=== PATIENT | female | born 1985 | race American Indian/Alaskan Native ===

== ENCOUNTER 2019-09-29 22:59 | Day surgery (SDC) | payer MEDICAID ==
[2019-09-30 00:03] LABS: Basophils # (Auto) 0.1 K/mm3 (0.0-0.1); Basophils % (Auto) 0.9 % (0.0-1.8); Eosinophils # (Auto) 0.1 K/mm3 (0.0-0.4); Eosinophils % (Auto) 1.7 % (0.0-4.3); Hematocrit 31.6 % (30.3-42.9); Hemoglobin 10.9 gm/dl (10.1-14.3); Lymphocytes # (Auto) 2.7 K/mm3 (1.2-5.4); Mean Corpuscular HGB Conc 35 % (30-34); Mean Corpuscular Volume 99 fl (79-97); Monocytes # (Auto) 0.5 K/mm3 (0.0-0.8); Monocytes % (Auto) 6.2 % (0.0-7.3); Platelet Count 315 K/mm3 (140-440); Red Blood Count 3.19 M/mm3 (3.65-5.03); Red Cell Distribution Width 12.9 % (13.2-15.2)
[2019-09-30 01:59] LABS: Bacteria,Urine 1+ /HPF (Negative); Bilirubin,Urine NEG (Negative); Blood,Urine SM (Negative); Color,Urine Straw (Yellow); Protein,Urine <15 mg/dL mg/dL (Negative); Urobilinogen,Urine < 2.0 mg/dL (<2.0)
--- NOTE | 2019-09-30 02:56 | Ultrasound Report ---
Pelvic Ultrasound HISTORY: Vaginal spotting and abdominal pain. TECHNIQUE: Grayscale and color Doppler imaging performed. COMPARISON: No recent ultrasound is available for comparison FINDINGS: Uterus measures 6.8 x 4.2 x 4.9 cm. A couple primarily hypoechoic masses are present, one i n the uterine body region consistent with a fibroid measuring 1.5 cm. There is an ectopic in the left adnexal region. A small pole is identified with crown -rump length of 0.3 cm corresponding with an EGA of 6 weeks and 0 days. There is cardiac activi ty with heart rate of 116 bpm. No free fluid identified. Right ovary is normal in size and appearance . IMPRESSION: 1. Left-sided adnexal ectopic . 2. Pelvic fibroids. CRITICAL RESULT: Time of Discovery (HOT TAMALE WORKER/CDT): 1:49 AM Time of Communication (HOT TAMALE WORKER/CDT): 1:51 AM Licensed Practitioner Receiving Report: Alina in the emergency department Read Back Performed: Yes. Signer Name: Thanh Menchaca MD Signed: 09/30/2019 2:52 AM Workstation Name: [id number]
--- NOTE | 2019-09-30 02:56 | Ultrasound Report ---
Pelvic Ultrasound HISTORY: Vaginal spotting and abdominal pain. TECHNIQUE: Grayscale and color Doppler imaging performed. COMPARISON: No recent ultrasound is available for comparison FINDINGS: Uterus measures 6.8 x 4.2 x 4.9 cm. A couple primarily hypoechoic masses are present, one i n the uterine body region consistent with a fibroid measuring 1.5 cm. There is an ectopic in the left adnexal region. A small pole is identified with crown -rump length of 0.3 cm corresponding with an EGA of 6 weeks and 0 days. There is cardiac activi ty with heart rate of 116 bpm. No free fluid identified. Right ovary is normal in size and appearance . IMPRESSION: 1. Left-sided adnexal ectopic . 2. Pelvic fibroids. CRITICAL RESULT: Time of Discovery (M48/M60 TANK DRIVER/CDT): 1:49 AM Time of Communication (M48/M60 TANK DRIVER/CDT): 1:51 AM Licensed Practitioner Receiving Report: Alina in the emergency department Read Back Performed: Yes. Signer Name: Thanh Menchaca MD Signed: 09/30/2019 2:52 AM Workstation Name: [email or web address]
--- NOTE | 2019-09-30 03:06 | Emergency Department Report ---
ED General Adult HPI - General Chief complaint: GI Bleed Stated complaint: BLOOD CLOTS IN STOOL AND NEWLY Time Seen by Provider: 09/30/19 01:54 Source: patient Mode of arrival: Ambulatory Limitations: No Limitations - History of Present Illness Initial comments: Patient is a 34-year-old female presents emergency room with complaints of rectal bleeding that began a week ago. She states that she has been passing some small clots and notices blood when she wipes. She states that she has been constipated but is still able to have bowel movements. She states that she does have discomfort with having a bowel movement. She states that she has had hemorrhoids in the past. Patient states that she also just found out she was last week. She states that she took a urine test. she does not have an HEAD START TEACHER. She states her last menstrual cycle was the end of July. She states that she has had intermittent vaginal spotting and intermittent abdominal cramping for about a week. She denies any nausea, vomiting, diarrhea, fever. She states this is her first . She states that she was told by a doctor that she could not get due to blockages of her fallopian tubes. She denies any other past medical history. She states she has an allergy to sulfa. - Related Data Previous Rx's Medication Instructions Recorded Last Taken Type Diclofenac Dr Kathrine Almanza] 75 mg PO Q12H #30 tablet 07/03/15 Unknown Rx traMADoL [Ultram 50 MG tab] 50 mg PO Q6HR PRN #20 tablet 01/30/16 Unknown Rx Allergies Allergy/AdvReac Type Severity Reaction Status Date / Time Sulfa (Sulfonamide Allergy Hives Verified 04/12/14 08:23 Antibiotics) ED Review of Systems ROS: Stated complaint: BLOOD CLOTS IN STOOL AND NEWLY Other details as noted in HPI Comment: All other systems reviewed and negative ED Past Medical Hx - Past Medical History Previous Medical History?: Yes Hx Psychiatric Treatment: (anxiety) Additional medical history: Anemia, HEMORROIDS - Surgical History Past Surgical History?: Yes Additional Surgical History: LIPOMA LEFT SHOULDER - Social History Smoking Status: Never Smoker Substance Use Type: None - Medications Home Medications: Home Medications Medication Instructions Recorded Confirmed Last Taken Type Diclofenac Dr Kathrine Almanza] 75 mg PO Q12H #30 tablet 07/03/15 Unknown Rx traMADoL [Ultram 50 MG tab] 50 mg PO Q6HR PRN #20 tablet 01/30/16 Unknown Rx ED Physical Exam - General Limitations: No Limitations General appearance: alert, in no apparent distress - Head Head exam: Present: atraumatic, normocephalic - Eye Eye exam: Present: normal appearance - ENT ENT exam: Present: mucous membranes moist - Respiratory Respiratory exam: Present: normal lung sounds bilaterally. Absent: respiratory distress, wheezes, rales, rhonchi, stridor, chest wall tenderness, accessory muscle use, decreased breath sounds, prolonged expiratory - Cardiovascular Cardiovascular Exam: Present: regular rate, normal rhythm, normal heart sounds. Absent: systolic murmur, diastolic murmur, rubs, gallop - GI/Abdominal GI/Abdominal exam: Present: soft, normal bowel sounds. Absent: distended, tenderness, guarding, rebound, rigid - Rectal Rectal exam: Present: normal rectal tone, heme (-) stool, hemorrhoids (three small non thrombosed external hemorrhoids), other (small amount of light brown stool, no active bleeding, calciner operator: trinity, KALI). Absent: mass - Neurological Exam Neurological exam: Present: alert, oriented X3 - Psychiatric Psychiatric exam: Present: normal affect, normal mood - Skin Skin exam: Present: warm, dry, intact ED Course Vital Signs 09/29/19 09/30/19 09/30/19 23:03 03:39 04:17 Temperature 98.3 F 98.1 F Pulse Rate 104 H 70 Respiratory 18 18 18 Rate Blood Pressure 114/61 Blood Pressure 113/74 [Left] O2 Sat by Pulse 100 98 Oximetry - Consultations Consultation #1: 09/30/19 03:[address] Guadarrama, HEAD START TEACHER regarding pt history and US finding of ectopic , advised to keep NPO, get type and screen, and that pt will be going to the OR ED Medical Decision Making - Lab Data Result diagrams: 09/29/19 23:37 - Radiology Data Radiology results: report reviewed Pelvic Ultrasound HISTORY: Vaginal spotting and abdominal pain. TECHNIQUE: Grayscale and color Doppler imaging performed. COMPARISON: No recent ultrasound is available for comparison FINDINGS: Uterus measures 6.8 x 4.2 x 4.9 cm. A couple primarily hypoechoic masses are present, one in the uterine body region consistent with a fibroid measuring 1.5 cm. There is an ectopic in the left adnexal region. A small pole is identified with crown-rump length of 0.3 cm corresponding with an EGA of 6 weeks and 0 days. There is cardiac activity with heart rate of 116 bpm. No free fluid identified. Right ovary is normal in size and appearance. IMPRESSION: 1. Left-sided adnexal ectopic . 2. Pelvic fibroids. CRITICAL RESULT: Time of Discovery (RADIOTELEPHONE OPERATOR/CDT): 1:49 AM Time of Communication (RADIOTELEPHONE OPERATOR/CDT): 1:51 AM Licensed Practitioner Receiving Report: Alina in the emergency department Read Back Performed: Yes. Signer Name: Thanh Menchaca MD Signed: 09/30/2019 2:52 AM Workstation Name: [id number] Transcribed By: JEFFREY Dictated By: Thanh Menchaca MD Electronically Authenticated By: Thanh Menchaca MD Signed Date/Time: 09/30/19 025 DD/ 0247 TD/TT: - Medical Decision Making Patient is a 34-year-old female presents emergency room with complaints of rectal bleeding that began a week ago. She states that she has been passing some small clots and notices blood when she wipes. She states that she has been constipated but is still able to have bowel movements. She states that she does have discomfort with having a bowel movement. She states that she has had hemorrhoids in the past. Patient states that she also just found out she was last week. She states that she took a urine test. she does not have an HEAD START TEACHER. She states her last menstrual cycle was the end of July. She states that she has had intermittent vaginal spotting and intermittent abdominal cramping for about a week. She denies any nausea, vomiting, diarrhea, fever. She states this is her first . She states that she was told by a doctor that she could not get due to blockages of her fallopian tubes. She denies any other past medical history. She states she has an allergy to sulfa. initial vitals with mild tachycardia which improved upon repeat. on exam: three small non thrombosed external hemorrhoids, heme negative stool, small amount light brown stool, no active bleeding, calciner operator: Trinity, EMT, no abd TTP, no guarding, no rebound, no rigidity. rectal bleeding secondary to hemorrhoids, hemocult is negative, H/H are normal. labs are stable. H/H is normal. hcg quant is 2189. US OB: 1. Left-sided adnexal ectopic . 2. Pelvic fibroids. spoke with Dr. Guadarrama, HEAD START TEACHER regarding pt history and US finding of ectopic , advised to keep NPO, get type and screen, and that pt will be going to the OR. - Differential Diagnosis IUP, ectopic, subchorionic hemorrhage, cyst, hemorrhoids, anal fissure Critical care attestation.: If time is entered above; I have spent that time in minutes in the direct care of this critically ill patient, excluding procedure time. ED Disposition Clinical Impression: External hemorrhoid Ectopic Qualifiers: Location of ectopic : ovarian Intrauterine status: without intrauterine Laterality: left Qualified Code(s): O00.202 - Left ovarian without intrauterine Disposition: OP ADMIT IP TO THIS HOSP Is pt being admited?: Yes Does the pt Need Aspirin: No Condition: Stable Referrals: MARIO DE GUZMAN MD [Primary Care Provider] - 3-5 Days Forms: Accompanied Note
[2019-09-30] MEDS ORDERED: LACTATED RINGERS 1,000 ML IV ONE (04:46)
[2019-09-30] MEDS ORDERED: LIDOCAINE MPF (2%) 20 MG/1 ML VIAL 5 ML ONE (04:54)
[2019-09-30] MEDS ORDERED: SUCCINYLCHOLINE CHLORIDE 200 MG/10 ML INJ MDV ONE (04:54)
[2019-09-30] MEDS ORDERED: fentaNYL 100 MCG/2 ML INJ ONE (04:55)
[2019-09-30] MEDS ORDERED: propofoL 200 MG/20 ML VIAL IV ONE (04:55)
[2019-09-30] MEDS ORDERED: BUPIVACAINE/PF (0.5%) 5 MG/1 ML 30 ML VIAL INFILTRATI ONE ×2 (05:05→06:13)
--- NOTE | 2019-09-30 05:14 | History and Physical Report ---
History of Present Illness Chief complaint: genital bleeding History of present illness: 34yo (LMP end of July) presents to ER complaining of "rectal bleeding" for 1 week. She states she is passing clots when she uses the restroom and she believes it was coming from her rectum. She denies any vaginal bleeding or abdominal pain. When asked how she knew blood was from her rectum she states it was on the toilet paper. Her beta HCG was 2,189K in the ER and pelvic US revealed a 6 week fetus with ectopic in the left adnexa. Stool Hemeocult analysis was negative. She was told several years ago that her fallopian tubes were blocked and only did a test after prompted by a coworker after complaining about her bleeding. She is tearful and states she is going to "lose her baby" and she is alone. 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 Her mother is in [place], [place] where she is from.) - Obstetrical History : 1 Number of Living Children: 0 Medications and Allergies Allergies Allergy/AdvReac Type Severity Reaction Status Date / Time Sulfa (Sulfonamide Allergy Hives Verified 04/12/14 08:23 Antibiotics) Home Medications Medication Instructions Recorded Confirmed Last Taken Type Diclofenac Dr [Voltaren Dr] 75 mg PO Q12H #30 tablet 07/03/15 Unknown Rx traMADoL [Ultram 50 MG tab] 50 mg PO Q6HR PRN #20 tablet 01/30/16 Unknown Rx Ibuprofen [Motrin 800 MG tab] 800 mg PO Q8HR PRN 30 Days #30 09/30/19 Unknown Rx tablet oxyCODONE /ACETAMINOPHEN [Percocet 1 tab PO Q4HR PRN 14 Days #30 tab 09/30/19 Unknown Rx 5/325] Active Meds: Active Medications Lactated Ringer's (Lactated Ringers) 1,000 mls @ 999 mls/hr IV BOLUS ONE Stop: 09/30/19 05:46 Last Admin: 09/30/19 04:47 Dose: 999 mls/hr Documented by: Review of Systems Genitourinary: vaginal bleeding - Vital Signs Vital signs: Vital Signs Temp Pulse Resp BP Pulse Ox 98.3 F 104 H 18 114/61 100 09/29/19 23:03 09/29/19 23:03 09/29/19 23:03 09/29/19 23:03 09/29/19 23:03 Temp Pulse Resp BP Pulse Ox 98.1 F 70 18 113/74 98 09/30/19 03:39 09/30/19 03:39 09/30/19 04:17 09/30/19 03:39 09/30/19 03:39 - Physical Exam Abdomen: Positive: soft, other (no guarding or rebound) Vagina: Positive: other (deferred to OR) Uterus: Positive: other (deferred to OR) Extremities: Positive: normal - Obstetrical FHR comments: heart rate 116 on US, CRL 6 weeks Results Result Diagrams: 09/29/19 23:37 Abnormal lab results 09/29/19 09/29/19 09/29/19 Range/Units 23:32 23:37 23:37 RBC 3.19 L (3.65-5.03) M/mm3 MCV 99 H (79-97) fl MCH 34 H (28-32) pg MCHC 35 H (30-34) % RDW 12.9 L (13.2-15.2) % HCG, Quant 2189 H (0-4) mIU/mL Ur Specific Sayre 1.002 L (1.003-1.030) All other labs normal. Assessment and Plan - Patient Problems (1) Ectopic Current Visit: Yes Status: Acute Qualifiers: Location of ectopic : ovarian Intrauterine status: without intrauterine Laterality: left Qualified Code(s): O00.202 - Left ovarian without intrauterine Plan to address problem: 1. Due to relative contraindication to methotrexate recommend proceeding to diagnostic laparoscopy with removal of ectopic . Risk of tubal rupture, pelvic hemorrhage, possible oopherectomy and resulting decreased fertility, infection, injury to surrounding organs including bladder, bowel, ureters, conversion to laparotomy, neuropathy, [place] and stroke discussed Benefits and alternatives discussed and informed consent signed. 2. SCDs for DVT prophylaxis. 3. Ancef 2g IV 4. Proceed to OR.
[2019-09-30] MEDS ORDERED: MIDAZOLAM 2 MG/2 ML INJ ONE ×2 (05:38)
--- NOTE | 2019-09-30 05:51 | Anesthesia Consultation ---
Anesthesia Consult and Med Hx Date of service: 09/30/19 - Airway Anesthetic Teeth Evaluation: Good ROM Head & Neck: Adequate Mental/Hyoid Distance: Adequate Mallampati Class: Class II Intubation Access Assessment: Good - Pulmonary Exam CTA: Yes - Cardiac Exam Cardiac Exam: No Murmur - Pre-Operative Health Status ASA Pre-Surgery Classification: ASA1, Emergency Proposed Anesthetic Plan: General
--- NOTE | 2019-09-30 05:51 | Anesthesia Day of Surgery ---
Anesthesia Day of Surgery - Day of Surgery Patient Examined: Yes Patient H&P Reviewed: Yes Patient is NPO: Yes
[2019-09-30] MEDS ORDERED: ceFAZolin/Water 2 GM/20 ML 2 GM/20 ML SYRINGE IV NR (06:00)
[2019-09-30] MEDS ORDERED: SODIUM CHLORIDE 0.9% IRR 1,000 ML BOTTLE IR ONE (06:13)
[2019-09-30] MEDS ORDERED: METOCLOPRAMIDE 10 MG/2 ML INJ ONE (07:03)
[2019-09-30] MEDS ORDERED: KETOROLAC 30 MG/1 ML INJ ONE (07:03)
[2019-09-30] MEDS ORDERED: ONDANSETRON 4 MG/2 ML INJ ONE (07:03)
[2019-09-30] MEDS ORDERED: dexAMETHasone 20 MG/5 ML VIAL ONE (07:03)
[2019-09-30] MEDS ORDERED: LACTATED RINGERS 1,000 ML ONE (07:04)
[2019-09-30] MEDS ORDERED: HYDROmorphone 1 MG/1 ML INJ ONE (07:04)
[2019-09-30] MEDS ORDERED: NEOSTIGMINE 10MG/10 ML INJ MDV ONE (07:40)
[2019-09-30] MEDS ORDERED: GLYCOPYRROLATE 0.4 MG/2 ML INJ ONE ×2 (07:40)
[2019-09-30] MEDS: HYDROmorphone 1 MG/1 ML INJ IV PRN ×2 (08:23→08:35)
--- NOTE | 2019-09-30 08:55 | Operative Report ---
Operative Report Operative Report: Preop diagnosis 1. Left tubal ectopic with heart activity 2. Vaginal bleeding 3. Fibroid uterus 4. History of infertility Postop diagnosis 1. Left tubal ectopic with heart activity 2. Vaginal bleeding 3. Cervical stenosis 4. Pelvic adhesions 5. Pedunculated fibroid uterus 6. Right simple cyst 7. Bilateral hydrosalpinx 8. History of infertility Procedure 1. Diagnostic laparoscopy 2. Left partial salpingectomy 3. Excision of ectopic Surgeon Dr. Jazmine Guadarrama Findings 1. ~ 8week anteverted uterus 2. Left tubal ectopic adhered to left ovary and fimbria 3. Small ~2cm anterior pedunculated fibroid 4. Stenotic cervix 5. Filmy adhesions right fallopian tube to pelvic side wall 6. Simple appearing right paratubal cyst ~1cm 7. Bilateral hydrosalpinx Specimen: 1. Products of conception encased in left partial fallopian tube Anesthesia: General I/O EBL: <25ml UOP: 325ml clear Complications: none Disposition: Patient to PACU in stable condition INDICATION: 34yo presented to ER complaining of vaginal bleeding and positive test. The ultrasound revealed a left adnexal with cardiac activity. Due to the relative contraindication to methotrexate with ectopic with cardiac activity the recommendation was made to proceed to surgical treatment. The risks of diagnostic laparoscopy including but not limited to bleeding, infection, injury to vessels, bladder and/or bowel and nerve injury were discussed. Benefits and alternatives were discussed and informed consent signed. PROCEDURE: The patient was taken to OR 3 in stable condition. She was placed on the bed in the supine position and adequate anesthesia was achieved. She wore SCDs for DVT prophylaxis and received Ancef 2g. An exam under anesthesia was done. She was prepped and draped in the sterile fashion and a time out was done. She was re- positioned in the dorsal lithotomy position with Deshawn stirrups. A Holder catheter was placed to drain the bladder. Initially an EEA sizer was placed per vagina and used to manipulate the uterus until the ectopic was confirmed in the left adnexa via laparoscope. Attention was then turned to the abdomen where a 0.5cm infraumbilical incision was made. A 5mm Applied Fios trocar was used to insufflate the abdomen with CO2 gas. The opening pressure was noted to be <10mm Hg. An intra-abdominal survey noted bilateral hydrosalpinx, pelvic adhesions and left tubal ectopic . No signs of endometriosis were noted. A RLQ 5mm incision was placed in LLQ and 10mm trocar placed in RLQ under direct visualization. Returning to the perineum, a sterile speculum was placed per vagina and a single toothed tenaculum was placed on the anterior lip of the cervix. An acorn uterine manipulator was placed in the cervix. A Ligasure [place] bipolar device was used to free the products from the fallopian tube. The products were then placed in an Endocatch bag and removed from the abdomen under direct visualization. The products of conception was incised on the Ruano stand and gestational sac and parts were visualized. The patient was taken out of Trendelenburg and the abdomen freed of gas, the pelvis was noted to be hemostatic. The left tubal pedicle and ovary was noted to be hemostatic. The abdomen was freed of gas and all trocars were removed. The Volant uterine manipulator was removed. The Holder catheter was removed. 0.5% Marcaine was injected into the abdominal incisions. The skin of both incisions was closed with 4-0 Monocryl The procedure was ended. All counts were correct x 2. The patient was awakened from anesthesia in stable condition and transported to the PACU. I was present and scrubbed for the entire procedure. Of note the patient was noted to have a small amount of epistaxis from right nostril before leaving the OR. This was monitored in the PACU with no repeat episodes.
[2019-09-30] MEDS ORDERED: oxyCODONE /ACETAMINOPHEN 5-325MG TAB PO PRN (09:39)
--- NOTE | 2019-09-30 10:18 | Discharge Summary ---
Providers - Providers 09/30/19 03:18 Consult to Physician [CONS] Stat Comment: Consulting Provider: MAISHA MARIE Physician Instructions: Reason For Exam: ectopic 09/30/19 03:47 Consult to Physician [CONS] Stat Comment: Consulting Provider: SANCHEZ LUKE Physician Instructions: Reason For Exam: rectal bleeding [facility] Reason for admission: other (vaginal bleeding) Procedure: other (diagnostic laparoscopy, left partial salpingectomy, excision ectopic ) Discharge diagnosis: other (left ectopic , fibroid uterus, cervical stenosis) Hospital course: 34yo (LMP end of July) presents to ER complaining of "rectal bleeding" for 1 week. She states she is passing clots when she uses the restroom and she believes it was coming from her rectum. She denies any vaginal bleeding or abdominal pain. When asked how she knew blood was from her rectum she states it was on the toilet paper. Her beta HCG was 2,189K in the ER and pelvic US revealed a 6 week fetus with ectopic in the left adnexa. Stool Hemeocult analysis was negative. She was told several years ago that her fallopian tubes were blocked. Preop diagnosis 1. Left tubal ectopic with heart activity 2. Vaginal bleeding 3. Fibroid uterus 4. History of infertility Postop diagnosis 1. Left tubal ectopic with heart activity 2. Vaginal bleeding 3. Cervical stenosis 4. Pelvic adhesions 5. Pedunculated fibroid uterus 6. Right simple cyst 7. Bilateral hydrosalpinx 8. History of infertility Procedure 1. Diagnostic laparoscopy 2. Left partial salpingectomy 3. Excision of ectopic Findings 1. ~ 8week anteverted uterus 2. Left tubal ectopic adhered to left ovary and fimbria 3. Small ~2cm anterior pedunculated fibroid 4. Stenotic cervix 5. Filmy adhesions right fallopian tube to pelvic side wall 6. Simple appearing right paratubal cyst ~1cm 7. Bilateral hydrosalpinx Specimen: 1. Products of conception encased in left partial fallopian tube Condition at discharge: Stable Disposition: -09 OP ADMIT IP TO THIS HOSP - Discharge Diagnoses (1) Ectopic Status: Acute Qualifiers: Location of ectopic : ovarian Intrauterine status: without intrauterine Laterality: left Qualified Code(s): O00.202 - Left ovarian without intrauterine Comment: s/p left salpingectomy. betaHCG 2189-->2159 (decreasing post-op) Plan - Discharge Medications Prescriptions: Ibuprofen [Motrin 800 MG tab] 800 mg PO Q8HR PRN 30 Days #30 tablet PRN Reason: Pain, Moderate (4-6) oxyCODONE /ACETAMINOPHEN [Percocet 5/325] 1 tab PO Q4HR PRN 14 Days #30 tab PRN Reason: Pain , Severe (7-10) - Provider Discharge Summary Activity: no sex for 6 weeks, no strenuous exercise Diet: other (clear liquids x 2 days) Additional instructions: [] Smoking cessation referral if applicable(refer to patient education folder for contact #) [] Refer to [facility]'s [facility] Booklet Call your doctor immediately for: * Fever > 100.5 * Heavy vaginal bleeding ( >1 pad per hour) * Severe persistent headache * Shortness of breath * Reddened, hot, painful area to leg or breast * Drainage or odor from incision. * Keep incision clean and dry at all times and follow doctor's instructions regarding bathing/showering - Follow up plan Follow up: CHELA BESTFONDA MD LILLIANA [Primary Care Provider] - 10/23/19 MAISHA MARIE MD [Staff Physician] - 7 Days Forms: Outpatient Surgery [facility]. Pending Studies Need serial betaHCGs every 1-2 weeks til zero
--- NOTE | 2019-09-30 10:43 | Post Anesthesia Evaluation ---
- Post Anesthesia Evaluation Patient Participated: Yes Airway Patent: Yes Stable Respiratory Function: Yes Nausea/Vomiting: No Temp > 96.8F: Yes Pain Manageable: Yes Adequeate Hydration: Yes Anesthesia Complications: No
[2019-09-30 10:47] VITALS: BP 110/73
== END 2019-09-30 09:18 | disposition home or self-care (01) ==
LOC: ED 22:59 → OR 09-30 09:17
PROVIDERS: ATTEND Emergency Medicine
DX: O00.102 Left tubal pregnancy without intrauterine pregnancy (principal); N92.0 Excessive and frequent menstruation with regular cycle; N88.2 Stricture and stenosis of cervix uteri; Z88.2 Allergy status to sulfonamides; Z79.899 Other long term (current) drug therapy
CPT/HCPCS: 36415; 59151; 76801; 76817; 81001; 82271; 84702; 85025; 86850; 86900; 86901; 88305; 99285; J0330; J1100; J1170; J1885; J2250; J2405; J2704; J2710; J2765; J3010; J7120